=== PATIENT | female | born 1965 | race Caucasian/White ===

== ENCOUNTER 2017-11-06 23:10 | Emergency (ER) | payer MEDICAID ==
[~2017-11-06] VITALS: Ht 170.2 cm; Wt 139.9 kg
[~2017-11-06 23:10] MED LIST: ASPI-515 PO; HYDR1TAB16 PO; NAPR-685 PO; RIVA15TA PO
[2017-11-06 23:12] VITALS: BP 180/120
== END 2017-11-07 00:20 ==
LOC: ED 23:59
DX: R06.02 Shortness of breath (principal); Z53.21 Procedure and treatment not carried out due to patient leaving prior to being seen by health care provider
CPT/HCPCS: 93005

== ENCOUNTER 2019-02-13 21:47 | Emergency (ER) | payer MEDICAID ==
[~2019-02-13] VITALS: Ht 170.2 cm; Wt 139.2 kg
[2019-02-13 21:51] VITALS: BP 159/92
[2019-02-13] MEDS ORDERED: LIDOCAINE-MPF 1%, 5ML INFIL ONE (22:30)
[2019-02-13] MEDS ORDERED: DIPH,PERTUSS(ACELL),TET VAC/PF 0.5 ML IM-VACC ONE ×2 (22:30→22:41)
[2019-02-13] MEDS ORDERED: LIDOCAINE-MPF 1%, 5ML ONE (22:40)
[2019-02-13] MEDS ORDERED: LOSA50TA14 PO (22:47)
[2019-02-13] MEDS ORDERED: HYDR-3245 PO (22:47)
== END 2019-02-13 23:51 | disposition home or self-care (01) ==
LOC: ED 23:27
DX: L03.111 Cellulitis of right axilla (principal); L02.411 Cutaneous abscess of right axilla; Z72.9 Problem related to lifestyle, unspecified; F17.200 Nicotine dependence, unspecified, uncomplicated; I10 Essential (primary) hypertension
CPT/HCPCS: 10060; 90471; 90715; 99283

== ENCOUNTER 2019-02-14 15:31 | Emergency (ER) | payer MEDICAID ==
[~2019-02-14] VITALS: Ht 170.2 cm; Wt 138.0 kg
[~2019-02-14 15:31] MED LIST changes: +HYDR-3245 PO; +LOSA50TA14 PO
[2019-02-14 16:00] VITALS: BP 162/81
--- NOTE | 2019-02-14 16:43 | NUR ---
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
[2019-02-14] MEDS ORDERED: L.E.T SOLUTION TP ONE (17:26)
== END 2019-02-14 18:33 | disposition home or self-care (01) ==
LOC: ED 18:05
DX: Z48.01 Encounter for change or removal of surgical wound dressing (principal)
CPT/HCPCS: 99283

== ENCOUNTER → 2020-05-07 | Outpatient (CLI) | payer MEDICAID ==
[~2020-05-07] MED LIST changes: +OMNIPAQUE 350 MG/ML, 100ML BOTTLE ONE
[2020-05-07 16:17] LABS: CREATININE 0.69 mg/dL (0.55-1.02)
== END | disposition home or self-care (01) ==
LOC: RAD 15:34
DX: K57.30 Diverticulosis of large intestine without perforation or abscess without bleeding (principal); N83.201 Unspecified ovarian cyst, right side; R10.819 Abdominal tenderness, unspecified site; M54.5 Low back pain
CPT/HCPCS: 36415; 74177; 82565; Q9967